=== PATIENT | male | born 1940 | race Caucasian/White ===

== ENCOUNTER → 2019-06-18 | Outpatient (CLI) | payer MEDICARE, OTHER | LOC: LL.SLEEP 10:08 | PROVIDERS: ATTEND Internal Medicine | DX: G47.33 Obstructive sleep apnea (adult) (pediatric) (principal) | CPT/HCPCS: Q3014 ==

== ENCOUNTER 2020-06-16 15:19 | Emergency (ER) | payer MEDICARE, OTHER ==
[2020-06-16] MEDS ORDERED: Famotidine 20 MG/2 ML SDV IVPUSH ONE (15:21)
--- NOTE | 2020-06-16 15:21 | EDM.PDOC ---
ED HPI GENERAL MEDICAL PROBLEM - General Chief Complaint: Neuro Symptoms/Deficits Stated Complaint: stroke code Time Seen by Provider: 06/16/20 15:21 Source of Information: Reports: Patient, [facility] Records, Old Records ([facility] EMR. No paper hospital chart available/found.), Other ([facility]) History Limitations: Reports: No Limitations - History of Present Illness INITIAL COMMENTS - FREE TEXT/NARRATIVE: The patient was brought to the emergency room via transport vehicle from [facility] in [place] with the patient just being brought home from [facility] after 24-hour observation for an episode of aphasia and confusion post heart catheterization on 06/15/2020. Shortly prior to arrival to this facility at about 14:30 hours the patient began experiencing a similar episode with 10/10 bilateral frontal headache, sudden onset bilateral nonspecific weakness, mild confusion, aphasia, and slow mental status with symptoms essentially resolved by time of arrival to this facility. He still does have a fairly significant bilateral frontal headache, however. A stroke code was called by our nursing staff. The patient denies any chest pain/pressure, heart flutter, dizziness, orthostasis, orthopnea, diaphoresis, paresthesias, recent decreased exercise tolerance, or any other anginal-type symptoms. No recent history of abdominal pain, heartburn, nausea, diarrhea, melena, gross hematochezia, or any food intolerance, including fatty foods, etc.. The patient also denies any recent fever, cough, wheezing, dyspnea, etc.. Onset: Today, Sudden Onset Date: 06/16/20 Onset Time: 14:30 Duration: Constant (Headache), Improving (Neurological status) Location: Reports: Head. Denies: Face, Neck, Chest, Abdomen, Back, Upper Extremity, Left, Upper Extremity, Right, Radiates to Quality: Reports: Same as Previous Episode, Throbbing Severity: Severe Improves with: Reports: None Worsens with: Reports: None Context: Reports: Other (As above). Denies: Sick Contact, Trauma Associated Symptoms: Reports: Confusion (Improved/resolved on arrival), Headaches. Denies: Chest Pain, Cough, Diaphoresis, Fever/Chills, Loss of Appetite, Malaise, Nausea/Vomiting, Rash, Seizure, Shortness of Breath, Syncope, Weakness Treatments ADDICTIONS RECOVERY SPECIALIST: Reports: Other (see below) (None) Bilateral Frontal Headache Pain Score (Numeric/FACES): 10 - Related Data Allergies Allergy/AdvReac Type Severity Reaction Status Date / Time aspirin Allergy Unknown Other Verified 06/16/20 15:47 Home Meds: Home Meds Acetaminophen [Tylenol Extra Strength] 1,000 mg PO Q4HR PRN MDD 3,000 mg in 24 hours 06/16/20 [History] Allopurinol [Zyloprim] 300 mg PO DAILY 06/16/20 [History] Clopidogrel [Plavix] 75 mg PO BEDTIME 06/16/20 [History] Dabigatran [Pradaxa] 150 mg PO Q12HR 06/16/20 [History] Escitalopram Oxalate [Lexapro] 20 mg PO DAILY 06/16/20 [History] Fluticasone Propionate [Flonase] 1 spray NASBOTH Q12HR 06/16/20 [History] Glucosamine/D3/Boswellia Florecita [Osteo Bi-Flex Tablet] 1 tab PO DAILY 06/16/20 [History] Isosorbide Mononitrate [Isosorbide Mononitrate ER] 15 mg PO DAILY PRN 06/16/20 [History] Levothyroxine Sodium [Synthroid] 200 mcg PO DAILY 06/16/20 [History] Loratadine 10 mg PO DAILY 06/16/20 [History] Multivit-Min/FA/Lycopen/Lutein [Centrum Silver Tablet] 1 tab PO DAILY 06/16/20 [History] Nitroglycerin [Nitrostat] 0.4 mg PO ASDIRECTED PRN 06/16/20 [History] Non-Formulary Medication [NF Drug] 1 each NASBOTH BID@0800,2000 06/16/20 [History] [place]-3/DHA/Epa/Fish Oil [[place]-3 Fish Oil Softgel] 1 cap PO DAILY 06/16/20 [History] Omeprazole 20 mg PO DAILY 06/16/20 [History] Propylene Glycol/Peg 400 [Systane 0.3-0.4% Eye Drops] 1 drop EYEBOTH Q12HR 06/16/20 [History] Propylene Glycol/Peg 400 [Systane 0.3-0.4% Eye Drops] 1 drop EYELF ASDIRECTED PRN 06/16/20 [History] Sotalol HCl [Betapace] 80 mg PO DAILY 11/19/20 [History] Vitamin E 400 unit PO DAILY 06/16/20 [History] atorvaSTATin [Lipitor] 20 mg PO BEDTIME 06/16/20 [History] levETIRAcetam [Keppra] 750 mg PO Q12HR 06/16/20 [History] metFORMIN HCl [Metformin HCl ER] 1,000 mg PO Q12HR 06/16/20 [History] Past Medical History HEENT History: Reports: Allergic Rhinitis, Hard of Hearing, Macular Degeneration, Sinusitis Cardiovascular History: Reports: Afib, Arrhythmia, CAD, Cardiomyopathy, High Cholesterol, Hypertension, PTCA, Stents, Other (See Below) Other Cardiovascular History: History of atrial fibrillation and PACs with current Pradaxa therapy. Grade 2 diastolic dysfunction and left atrial enlargement by echocardiogram. Respiratory History: Reports: Sleep Apnea, Other (See Below) Other Respiratory History: Bilateral pulmonary nodules in the bases with additional large right lower lobe pulmonary nodule stable from serial exams as below. Right-sided fifth rib fracture. Gastrointestinal History: Reports: Other (See Below) Other Gastrointestinal History: Umbilical hernia. Genitourinary History: Reports: BPH, Chronic Renal Insuffiency, Diabetic Nephropathy Musculoskeletal History: Reports: Arthritis, Fracture, Gout, Osteoarthritis, Other (See Below) Other Musculoskeletal History: Right rib fracture as above. 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 History of possible post catheterization TIA on 06/15/2020. Psychiatric History: Reports: Anxiety, Depression Endocrine/Metabolic History: Reports: Diabetes, Type II, Hypothyroidism, Obesity/BMI 30+, Other (See Below). Denies: IDDM Other Endocrine/Metabolic History: Postoperative hypothyroidism after thyroidectomy for thyroid cancer. 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 - Past Surgical History HEENT Surgical History: Reports: Naso-Sinus Surgery, Oral Surgery, Other (See Below) Other HEENT Surgeries/Procedures: Endoscopic nasal surgeries x5 since 05/06/2019 with last procedure on 05/02/2020. Septoplasty performed on 07/27/2019. Teeth extractions Cardiovascular Surgical History: Reports: Coronary Artery Stent, Other (See Below) Other Cardiovascular Surgeries/Procedures: PTCA/stent x2 in 2016 including right circumflex and right coronary artery. Endocrine Surgical History: Reports: Thyroidectomy, Other (See Below) Other Endocrine Surgeries/Procedures: Positive thyroid fine-needle aspiration biopsy on 03/10/2019 with subsequent probable complete thyroidectomy in 2019. - Past Imaging History Past Imaging History: Reports: Angiography (Negative heart catheterization on 06/15/2020 including patent stents x2 as above.), Cardiac Echo (01/27/2019 with ejection fraction of 55-60% and otherwise findings as above.), CAT Scan (CT of the chest on 02/07/2019.), MRI (Negative MRI of the brain on 06/15/2020.), PET (Cardiolite evaluation on 05/06/2020 positive for lateral wall ischemia with ejection fraction of 64 to 65%.), Sleep Study (05/18/2020.), Stress Testing (PET Cardiolite Lexiscan on 05/06/2020 as above. Stress echocardiogram on 03/26/2019.), Ultrasound (Thyroid ultrasound on 01/27/2020, 03/10/2019, and 02/03/2019.), Other (See Below) (NM I-131 thyroid whole-body scan initiated on 06/05/2019 with follow-up scan on 06/11/2019.) - History Comment History Comment: Note limited records with patient being a poor historian. Social & Family History - Family History Family Medical History: Unobtainable (Patient is a poor historian) - Living Situation & Occupation Living situation: Reports: Extended Care Facility ([facility] in [place], [facility]) ED ROS GENERAL - Review of Systems Review Of Systems: Comprehensive ROS is negative, except as noted in HPI. ED EXAM, NEURO - Physical Exam Exam: See Below Exam Limited By: No Limitations General Appearance: Alert, WD/WN, Anxious, Mild Distress (Mild secondary to headache). No: Lethargic Eye Exam: Bilateral Eye: EOMI, Normal Fundi, Normal Inspection (No nystagmus), PERRL Ears: Normal External Exam, Normal Canal, Normal TMs, Hearing Loss (Mild bilateral presbycusis) Nose: Normal Inspection, Normal Mucosa, No Blood Throat/Mouth: Normal Inspection, Normal Lips, Normal Teeth, Normal Gums, Normal Oropharynx, Normal Voice, No Airway Compromise. No: Dysphagia, Inflammation, Perioral Cyanosis Head Exam: Atraumatic, Normocephalic. No: Facial Swelling, Facial Tenderness, Sinus Tenderness Neck: Supple, Non-Tender, Full Range of Motion, Carotid Bruit (Mild bilateral carotid bruits). No: Lymphadenopathy (L), Lymphadenopathy (R), Thyromegaly Respiratory/Chest: No Respiratory Distress, Lungs Clear, Normal Breath Sounds, No Accessory Muscle Use, Chest Non-Tender. No: Pleural Rub, Retractions Cardiovascular: Normal Peripheral Pulses, Regular Rate, Rhythm, No Edema, No Gallop, No JVD, No Murmur, No Rub. No: Gallop/S3, Gallop/S4, Friction Rub GI/Abdominal: Normal Bowel Sounds, Soft, Non-Tender, No Organomegaly, No Distention, No Abnormal Bruit, No Mass, Pelvis Stable, Hernia (2cm non- incarcerated umbilical hernia). No: Guarding (Male) Exam: Deferred Rectal (Males) Exam: Deferred Neurological: Alert, Normal Dorsiflexion, Normal Plantar Flexion, Normal Gait, Oriented x 3, Abnormal Finger to Nose (As above). No: Normal Reflexes (Negative Babinski's and pronator rotation tests. No evidence of facial paresis, tongue deviation, orthostasis, etc.. Some problems with reverse thought processes with mildly positive right-sided [id number] test.), Babinski Back Exam: Normal Inspection, Full Range of Motion. No: CVA Tenderness (L), CVA Tenderness (R), Muscle Spasm Extremities: Normal Inspection, Normal Range of Motion, Non-Tender, No Pedal Edema, Normal Capillary Refill. No: Yojana's Sign Psychiatric: Anxious (Mild). No: Depressed Mood Skin Exam: Warm, Dry, Intact, Normal Color, No Rash. No: Diaphoretic, Ecchymosis, Petechiae, Wound/Incision #1 Interpretation EKG Date: 06/16/20 Time: 15:27 Rhythm: NSR Rate (Beats/Min): 63 [place]: Normal (Neutral cardiac access) P-Wave: Present QRS: Normal (0.09 seconds with noisy baseline, especially in V3) ST-T: Normal (New T wave inversion V1 with stable inversion in aVL) QT: Prolonged (Mild at 454/464 ms) MN/PQ Interval: 0.17 seconds Comparison: Change From Previous EKG (As above since 01/27/2019) EKG Interpretation Comments: 1. No acute ischemic changes Course - Vital Signs Last Recorded V/S: Last Vital Signs Temp 37.2 C 06/16/20 21:00 Pulse 68 06/16/20 21:00 Resp 18 06/16/20 21:00 BP 136/64 06/16/20 21:00 Pulse Ox 97 06/16/20 21:00 See Stroke Code sheet Vital Signs - 24 hr 06/16/20 06/16/20 20:00 21:00 Temperature [ 37.9 C 37.2 C Oral] Pulse, 77 68 Peripheral [ Pulse Oximetry] Respiratory 18 18 Rate Blood Pressure 139/73 136/64 [Left Upper Arm ] O2 Sat by Pulse 98 97 Oximetry - Orders/Labs/Meds Orders: Active Orders 24 hr Category Date Time Status Chest 1V Frontal [CR] Stat Exams 06/16/20 15:21 Taken Head wo Cont [CT] Stat Exams 06/16/20 15:21 Taken CULTURE BLOOD [BC] Stat Lab 06/16/20 20:10 Ordered CULTURE BLOOD [BC] Stat Lab 06/16/20 20:10 Ordered CULTURE URINE [RM] Routine Lab 06/16/20 17:00 Received PROLACTIN [REF] Stat Lab 06/16/20 15:15 Received Blood Culture x2 Reflex Set [OM.PC] Urgent Oth 06/16/20 20:09 Ordered Obtain Past Medical Record [OM.PC] Stat Oth 06/16/20 15:21 Active Peripheral IV Insertion Adult [OM.PC] Stat Oth 06/16/20 15:21 Ordered Resuscitation Status Stat Resus Stat 06/16/20 15:21 Ordered Labs: Laboratory Tests 06/16/20 06/16/20 06/16/20 Range/Units 15:15 15:15 15:15 WBC 7.8 (4.0-10.2) K/uL RBC 3.74 L (4.33-5.41) M/uL Hgb 10.3 L (13.1-16.8) g/dL Hct 32.2 L (39.0-49.0) % MCV 86.1 (84.0-98.0) fL MCH 27.5 L (28.2-33.3) pg MCHC 32.0 (31.7-36.0) g/dL RDW 14.8 H (11.2-14.1) % Plt Count 230 (150-350) K/uL Neut % (Auto) 58.6 (45.0-80.0) % Lymph % (Auto) 22.6 (10.0-50.0) % Collier % (Auto) 14.8 H (2.0-14.0) % Eos % (Auto) 3.5 (0.0-5.0) % Baso % (Auto) 0.5 (0.0-2.0) % Neut # (Auto) 4.56 (1.40-7.00) K/uL Lymph # (Auto) 1.76 (0.50-3.50) K/uL [place]lier # (Auto) 1.15 H (0.00-1.00) K/uL Eos # (Auto) 0.27 (0.00-0.50) K/uL Baso # (Auto) 0.04 (0.00-0.20) K/uL PT 10.0 (9.5-12.0) SEC INR 1.0 APTT 26.7 (24.5-32.8) SEC D-Dimer, Quantitative 117 (0-400) ng/mL Sodium (136-145) mmol/L Potassium (3.5-5.1) mmol/L Chloride (98-107) mmol/L Carbon Dioxide (21.0-32.0) mmol/L BUN (7-18) mg/dL Creatinine (0.51-1.17) mg/dL Est Cr Clr Drug Dosing mL/min Estimated GFR (MDRD) mL/min Glucose (74-106) mg/dL Lactic Acid (0.4-2.0) mmol/L Uric Acid (2.6-7.2) mg/dL Calcium (8.5-10.1) mg/dL Magnesium (1.8-2.4) mg/dL Total Bilirubin (0.2-1.0) mg/dL AST (15-37) U/L ALT (12-78) U/L Alkaline Phosphatase (46-116) IU/L Creatine Kinase (26-308) U/L Creatine Kinase Index (0.0-2.5) % CK-MB (CK-2) (0.00-3.60) ng/mL Troponin I (0.000-0.056) ng/mL NT-Pro-B Natriuret Pep (0-125) pg/mL Total Protein (6.4-8.2) g/dL Albumin (3.4-5.0) g/dL TSH, Ultra Sensitive (0.358-3.740) mIU/mL Specimen Type Urine Color Urine Appearance Urine pH (5.0-9.0) Ur Specific [place] (1.005-1.030) Urine Protein (NEGATIVE) mg/dL Urine Glucose (UA) (NEGATIVE) mg/dL Urine Ketones (NEGATIVE) mg/dL Urine Occult Blood (NEGATIVE) Urine Nitrite (NEGATIVE) Urine Bilirubin (NEGATIVE) Urine Urobilinogen (0.2-1.0) E.U./dL Ur Leukocyte Esterase (NEGATIVE) U Hyaline Cast (Auto) Urine RBC /HPF Urine WBC /HPF Urine Bacteria (NONE TO FEW) /HPF Granular Casts (Auto) 06/16/20 06/16/20 06/16/20 Range/Units 15:15 15:15 17:00 WBC (4.0-10.2) K/uL RBC (4.33-5.41) M/uL Hgb (13.1-16.8) g/dL Hct (39.0-49.0) % MCV (84.0-98.0) fL MCH (28.2-33.3) pg MCHC (31.7-36.0) g/dL RDW (11.2-14.1) % Plt Count (150-350) K/uL Neut % (Auto) (45.0-80.0) % Lymph % (Auto) (10.0-50.0) % Collier % (Auto) (2.0-14.0) % Eos % (Auto) (0.0-5.0) % Baso % (Auto) (0.0-2.0) % Neut # (Auto) (1.40-7.00) K/uL Lymph # (Auto) (0.50-3.50) K/uL [place] # (Auto) (0.00-1.00) K/uL Eos # (Auto) (0.00-0.50) K/uL Baso # (Auto) (0.00-0.20) K/uL PT (9.5-12.0) SEC INR APTT (24.5-32.8) SEC D-Dimer, Quantitative (0-400) ng/mL Sodium 137 (136-145) mmol/L Potassium 4.2 (3.5-5.1) mmol/L Chloride 101 (98-107) mmol/L Carbon Dioxide 22.9 (21.0-32.0) mmol/L BUN 19 H (7-18) mg/dL Creatinine 1.74 H (0.51-1.17) mg/dL Est Cr Clr Drug Dosing 35.54 mL/min Estimated GFR (MDRD) 38 mL/min Glucose 144 H (74-106) mg/dL Lactic Acid 3.0 H (0.4-2.0) mmol/L Uric Acid 5.0 (2.6-7.2) mg/dL Calcium 8.5 (8.5-10.1) mg/dL Magnesium 1.7 L (1.8-2.4) mg/dL Total Bilirubin 0.3 (0.2-1.0) mg/dL AST 15 (15-37) U/L ALT 17 (12-78) U/L Alkaline Phosphatase 67 (46-116) IU/L Creatine Kinase 62 (26-308) U/L Creatine Kinase Index 1.5 (0.0-2.5) % CK-MB (CK-2) 0.90 (0.00-3.60) ng/mL Troponin I 0.000 (0.000-0.056) ng/mL NT-Pro-B Natriuret Pep 944 H (0-125) pg/mL Total Protein 7.0 (6.4-8.2) g/dL Albumin 3.0 L (3.4-5.0) g/dL TSH, Ultra Sensitive 0.038 L (0.358-3.740) mIU/mL Specimen Type Urincc Urine Color Yellow Urine Appearance Clear Urine pH 5.0 (5.0-9.0) Ur Specific [place] 1.020 (1.005-1.030) Urine Protein 30 H (NEGATIVE) mg/dL Urine Glucose (UA) Negative (NEGATIVE) mg/dL Urine Ketones Trace H (NEGATIVE) mg/dL Urine Occult Blood Negative (NEGATIVE) Urine Nitrite Negative (NEGATIVE) Urine Bilirubin Negative (NEGATIVE) Urine Urobilinogen 0.2 (0.2-1.0) E.U./dL Ur Leukocyte Esterase Negative (NEGATIVE) U Hyaline Cast (Auto) Rare Urine RBC Not seen /HPF Urine WBC 0-5 /HPF Urine Bacteria Few (NONE TO FEW) /HPF Granular Casts (Auto) Rare 06/16/20 Range/Units 19:40 WBC (4.0-10.2) K/uL RBC (4.33-5.41) M/uL Hgb (13.1-16.8) g/dL Hct (39.0-49.0) % MCV (84.0-98.0) fL MCH (28.2-33.3) pg MCHC (31.7-36.0) g/dL RDW (11.2-14.1) % Plt Count (150-350) K/uL Neut % (Auto) (45.0-80.0) % Lymph % (Auto) (10.0-50.0) % [place] % (Auto) (2.0-14.0) % Eos % (Auto) (0.0-5.0) % Baso % (Auto) (0.0-2.0) % Neut # (Auto) (1.40-7.00) K/uL Lymph # (Auto) (0.50-3.50) K/uL [place] # (Auto) (0.00-1.00) K/uL Eos # (Auto) (0.00-0.50) K/uL Baso # (Auto) (0.00-0.20) K/uL PT (9.5-12.0) SEC INR APTT (24.5-32.8) SEC D-Dimer, Quantitative (0-400) ng/mL Sodium (136-145) mmol/L Potassium (3.5-5.1) mmol/L Chloride (98-107) mmol/L Carbon Dioxide (21.0-32.0) mmol/L BUN (7-18) mg/dL Creatinine (0.51-1.17) mg/dL Est Cr Clr Drug Dosing mL/min Estimated GFR (MDRD) mL/min Glucose (74-106) mg/dL Lactic Acid 3.5 H (0.4-2.0) mmol/L Uric Acid (2.6-7.2) mg/dL Calcium (8.5-10.1) mg/dL Magnesium (1.8-2.4) mg/dL Total Bilirubin (0.2-1.0) mg/dL AST (15-37) U/L ALT (12-78) U/L Alkaline Phosphatase (46-116) IU/L Creatine Kinase (26-308) U/L Creatine Kinase Index (0.0-2.5) % CK-MB (CK-2) (0.00-3.60) ng/mL Troponin I (0.000-0.056) ng/mL NT-Pro-B Natriuret Pep (0-125) pg/mL Total Protein (6.4-8.2) g/dL Albumin (3.4-5.0) g/dL TSH, Ultra Sensitive (0.358-3.740) mIU/mL Specimen Type Urine Color Urine Appearance Urine pH (5.0-9.0) Ur Specific [place] (1.005-1.030) Urine Protein (NEGATIVE) mg/dL Urine Glucose (UA) (NEGATIVE) mg/dL Urine Ketones (NEGATIVE) mg/dL Urine Occult Blood (NEGATIVE) Urine Nitrite (NEGATIVE) Urine Bilirubin (NEGATIVE) Urine Urobilinogen (0.2-1.0) E.U./dL Ur Leukocyte Esterase (NEGATIVE) U Hyaline Cast (Auto) Urine RBC /HPF Urine WBC /HPF Urine Bacteria (NONE TO FEW) /HPF Granular Casts (Auto) Prolactin level drawn with results pending. Stat Accu-Chek on patient's arrival 145 mg percent. Blood cultures x2 were collected Meds: Medications Discontinued Medications Generic Name Dose Route Start Last Admin Trade Name Mayra PRN Reason Stop Dose Admin Acetaminophen 650 mg 06/16/20 15:54 06/16/20 16:06 Tylenol PO 06/16/20 15:55 650 mg NOW ONE Administration Acetaminophen 650 mg 06/16/20 20:07 06/16/20 20:20 Tylenol PO 06/16/20 20:08 650 mg NOW ONE Administration Diphenhydramine HCl 50 mg 06/16/20 15:54 06/16/20 16:05 Benadryl PO 06/16/20 15:55 50 mg ONETIME ONE Administration Famotidine 40 mg 06/16/20 15:21 06/16/20 15:29 Pepcid IVPUSH 06/16/20 15:22 40 mg ONETIME ONE Administration Lactated Ringer's 1,000 mls @ 999 mls/hr 06/16/20 16:43 06/16/20 16:45 Ringers, Lactated IV 06/16/20 17:43 999 mls/hr .BOLUS ONE Administration Magnesium Sulfate 4 gm/ Premix 100 mls @ 200 mls/hr 06/16/20 17:17 06/16/20 17:34 IV 06/16/20 17:46 200 mls/hr ONETIME ONE Administration Ceftriaxone Sodium 1 gm/ 100 mls @ 200 mls/hr 06/16/20 20:10 06/16/20 20:27 Sodium Chloride IV 06/16/20 20:39 200 mls/hr ONETIME ONE Administration Ceftriaxone Sodium 1 gm/ 100 mls @ 200 mls/hr 06/16/20 21:01 06/16/20 21:16 Sodium Chloride IV 06/16/20 21:30 200 mls/hr ONETIME ONE Administration Metoclopramide HCl 10 mg 06/16/20 17:34 06/16/20 17:38 Reglan IVPUSH 06/16/20 17:35 10 mg ONETIME ONE Administration Sodium Chloride 10 ml 06/16/20 15:21 06/16/20 20:28 Saline Flush FLUSH 10 ml ASDIRECTED PRN Administration Keep Vein Open - Radiology Interpretation Free Text/Narrative:: bus monitor shows normal sinus rhythm in the 60s to 70s with no ectopy or arrhythmia. Chest x-ray, portable, shows evidence of mild COPD changes with probable stable right lower lobe pulmonary nodule. Borderline pulmonary hypertension and/or mild CHF with minimal left pleural effusion. No cardiomegaly, pneumothorax, or pulmonary infiltrates. Telephone consultation at 3:42 PM with the radiology department at [facility]. Preliminary verbal report does not show any evidence of acute findings, including cerebral bleed, etc., with chronic cerebral microvascular disease noted. CT Results Date: 06/16/20 CT Results Time: 15:42 Departure - Departure Time of Disposition: 22:10 Disposition: DC/Tfer to Acute Hospital 02 Condition: Good Clinical Impression: TIA (transient ischemic attack), Elevated lactic acid level, Hypomagnesemia, Hypothyroidism associated with surgical procedure, Hypoalbuminemia, Seizure disorder Headache Qualifiers: Headache type: unspecified Headache chronicity pattern: acute headache Intractability: not intractable Qualified Code(s): R51.9 - Headache, unspecified Diabetes mellitus Qualifiers: Diabetes mellitus type: type 2 Diabetes mellitus assisted insulin use: without assisted use Diabetes mellitus complication status: with kidney complications Diabetes mellitus complication detail: with chronic kidney disease Chronic kidney disease stage: stage 3 (moderate) Chronic kidney disease stage 3 subtype: stage 3a (GFR 45-59) Qualified Code(s): E11.21 - Type 2 diabetes mellitus with diabetic nephropathy Coronary artery disease Qualifiers: Coronary Disease-Associated Artery/Lesion type: [place] artery [place] vs. transplanted heart: [place] heart Associated angina: without angina Qualified Code(s): I25.10 - Atherosclerotic heart disease of [place] coronary artery without angina pectoris Hypertension Qualifiers: Hypertension type: essential hypertension Qualified Code(s): I10 - Essential (primary) hypertension Diabetic nephropathy Qualifiers: Diabetes mellitus type: type 2 Qualified Code(s): E11.21 - Type 2 diabetes mellitus with diabetic nephropathy Anemia Qualifiers: Anemia type: due to chronic kidney disease Chronic kidney disease stage: stage 3 (moderate) Chronic kidney disease stage 3 subtype: stage 3a (GFR 45-59) Qualified Code(s): N18.31 - Chronic kidney disease, stage 3a - Discharge Information *PRESCRIPTION DRUG MONITORING PROGRAM REVIEWED*: Not Applicable *COPY OF PRESCRIPTION DRUG MONITORING REPORT IN PATIENT EBONI: Not Applicable Referrals: Amanda Campos PA [Primary Care Provider] - Forms: ED Department Discharge, Interfacility Transfer [facility] Sepsis Event Note (ED) - Focused Exam Vital Signs: Vital Signs Temp Pulse Resp BP Pulse Ox 06/16/20 21:00 37.2 C 68 18 136/64 97 - Problem List & Annotations (1) Elevated lactic acid level SNOMED Code(s): 8511439 Code(s): R79.89 - OTHER SPECIFIED ABNORMAL FINDINGS OF BLOOD CHEMISTRY Status: Acute Priority: High Onset Date: 06/16/20 Annotation/Comment:: No fever, leukocytosis, or evidence of sepsis initially upon patient's arrival to the emergency room. 1 L lactated Ringer's was given given by IV bolus. Repeat lactic acid level shows progression to 3.5 with possibility of sepsis with infection source of unknown etiology. Patient did have some progressive confusion and new onset fever during later phases of his emergency room care with initial dose of Tylenol given for his headache and second dose of Tylenol given for his fever. Questionable possible pneumonia with negative COVID-19 test at [facility] in [place] earlier today per their EMR. UA is negative other than some mild ketones with no evidence of infection, however urine specimen was set up for culture and sensitivity. Blood cultures x2 were collected. Initial 1 g of IV Rocephin therapy was completed in the emergency room. Telephone consultation at 8:[address] Perez, hospitalist at the [facility], who agrees to check on his facility's bed status. Subsequent telephone consultation at 8:[address] Perez with discussion of possible etiologies of his infection, including SAND SHOVELER infection, etc., however patient did not show any meningeal signs during this emergency room care. He does agree to accept the patient for further review and treatment, with no further treatment recommendations given. Per Dr. Perez's request an additional 1 g of IV Rocephin infusion will be given in route with ambulance transfer with asset protection detective accompaniment. Probable additional IV antibiotic therapy by accepting providers at time of his arrival to that facility with consideration of additional influenza screen to be conducted at that time. Note potline monitor was maintained through majority of his emergency room care, however the patient kept tearing the electrodes off with patient not transferred with telemetry. (2) TIA (transient ischemic attack) SNOMED Code(s): 625598727 Code(s): G45.9 - TRANSIENT CEREBRAL ISCHEMIC ATTACK, UNSPECIFIED Status: Acute Priority: High Onset Date: 06/16/20 Annotation/Comment:: Possible TIA today and on 06/15/2020 during postoperative care during heart catheterization. [place] records were reviewed today as above. Note resolved symptoms at time of arrival to our facility. Stroke code was called by our emergency room nurse with telephone consultation at 3:[address] Jimenez, stroke neurologist at [facility], with no further treatment or evaluation recommended at this time. The patient may return to the shelter per his instructions. Note negative MRI of the brain without contrast at [facility] on 06/15/[address] scan of the head without contrast in this facility today. Neurological checks with vitals. Possibility of migraine equivalent versus small embolism from recent heart catheterization. Patient was observed in the emergency room for more than 3 hours with stable neurological findings prior to discharge with exception of some confusion likely secondary to his current infection. (3) Headache SNOMED Code(s): 47743898 Code(s): R51.9 - HEADACHE, UNSPECIFIED Status: Acute Priority: High Onset Date: 06/16/20 Annotation/Comment:: No known history of previous headaches based on limited medical records. Note history of chronic sinusitis with no evidence of acute infection at this time. Headache improved prior to patient transfer with medical therapy as above. Qualifiers: Headache type: unspecified Headache chronicity pattern: acute headache Intractability: not intractable Qualified Code(s): R51.9 - Headache, unspecified (4) Coronary artery disease SNOMED Code(s): 28107866 Code(s): I25.10 - ATHSCL HEART DISEASE OF [place] CORONARY ARTERY W/O ANG PCTRS Status: Chronic Priority: Medium Annotation/Comment:: Known history of coronary artery disease with patent stents x2 as per recent heart catheterization on 06/15/2020 as above. No chest pain or anginal type symptoms. Patient is a somewhat poor historian, however. Note mild BNP elevation likely secondary to his renal disease with no significant clinical CHF by exam despite chest x-ray findings as above. Continue to observe closely by regular providers as per discharge instructions. Qualifiers: Coronary Disease-Associated Artery/Lesion type: [place] artery [place] vs. transplanted heart: [place] heart Associated angina: without angina Qualified Code(s): I25.10 - Atherosclerotic heart disease of [place] coronary artery without angina pectoris (5) Anemia SNOMED Code(s): 926585969 Code(s): D64.9 - ANEMIA, UNSPECIFIED Status: Acute Priority: Medium Onset Date: 06/16/20 Annotation/Comment:: No evidence of GI bleed, etc. High- dose IV Protonix given as GI prophylaxis. Note chronic renal disease. Close follow-up by regular provider. Qualifiers: Anemia type: due to chronic kidney disease Chronic kidney disease stage: stage 3 (moderate) Chronic kidney disease stage 3 subtype: stage 3a (GFR 45- 59) Qualified Code(s): N18.31 - Chronic kidney disease, stage 3a; D63.1 - Anemia in chronic kidney disease (6) Diabetes mellitus SNOMED Code(s): 90408835 Code(s): E11.9 - TYPE 2 DIABETES MELLITUS WITHOUT COMPLICATIONS Status: Chronic Priority: Medium Annotation/Comment:: Stat Accu-Chek at time of patient's arrival normal at 145 mg percent with no evidence of hypoglycemic symptoms or episodes. Qualifiers: Diabetes mellitus type: type 2 Diabetes mellitus watermaster insulin use: daniella aguilar watermaster use Diabetes mellitus complication status: with kidney complications Diabetes mellitus complication detail: with chronic kidney dis ease Chronic kidney disease stage: stage 3 (moderate) Chronic kidney disease stage 3 subtype: stage 3a (GFR 45-59) Qualified Code(s): E11.21 - Type 2 diabetes mellitus with diabetic nephropathy; N18.31 - Chronic kidney disease, stage 3a (7) Diabetic nephropathy Status: Chronic Priority: Medium Annotation/Comment:: Continue to observe closely by regular providers. Qualifiers: Diabetes mellitus type: type 2 Qualified Code(s): E11.21 - Type 2 diabetes mellitus with diabetic nephropathy (8) Hypertension SNOMED Code(s): 88566411 Code(s): I10 - ESSENTIAL (PRIMARY) HYPERTENSION Status: Chronic Priority: Medium Annotation/Comment:: Blood pressures under good control in the emergency room. Qualifiers: Hypertension type: essential hypertension Qualified Code(s): I10 - Essential (primary) hypertension (9) Hypoalbuminemia SNOMED Code(s): 888542515 Code(s): E88.09 - OTH DISORDERS OF PLASMA-PROTEIN METABOLISM, NEC Status: Acute Priority: Medium Onset Date: 06/16/20 Annotation/Comment:: Observe for now (10) Hypomagnesemia SNOMED Code(s): 506010974 Code(s): E83.42 - HYPOMAGNESEMIA Status: Acute Priority: High Onset Date: 06/16/20 Annotation/Comment:: IV magnesium sulfate 4 g given in the emergency room, which was also used as treatment for his headache, with close follow-up by regular provider. Consider initiation of oral magnesium oxide therapy depending on results of follow-up blood work by his regular provider, however with caution secondary to his renal disease. 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 Further instructions by regular provider as per discharge instructions. (12) Seizure disorder SNOMED Code(s): 090849722 Code(s): G40.909 - EPILEPSY, UNSP, NOT INTRACTABLE, WITHOUT STATUS EPILEPTICUS Status: Chronic Priority: Medium Annotation/Comment:: No evidence of seizure today or during recent hospitalization at [place]. Prolact in level was drawn with results pending. No evidence of postictal sedation. - Problem List Review Problem List Initiated/Reviewed/Updated: Yes - My Orders Last 24 Hours: My Active Orders 06/16/20 15:15 PROLACTIN [REF] Stat 06/16/20 15:21 Chest 1V Frontal [CR] Stat Head wo Cont [CT] Stat Obtain Past Medical Record [OM.PC] Stat Peripheral IV Insertion Adult [OM.PC] Stat Resuscitation Status Stat 06/16/20 17:00 CULTURE URINE [RM] Routine 06/16/20 20:09 Blood Culture x2 Reflex Set [OM.PC] Urgent 06/16/20 20:10 CULTURE BLOOD [BC] Stat CULTURE BLOOD [BC] Stat - Assessment/Plan Last 24 Hours: My Active Orders 06/16/20 15:15 PROLACTIN [REF] Stat 06/16/20 15:21 Chest 1V Frontal [CR] Stat Head wo Cont [CT] Stat Obtain Past Medical Record [OM.PC] Stat Peripheral IV Insertion Adult [OM.PC] Stat Resuscitation Status Stat 06/16/20 17:00 CULTURE URINE [RM] Routine 06/16/20 20:09 Blood Culture x2 Reflex Set [OM.PC] Urgent 06/16/20 20:10 CULTURE BLOOD [BC] Stat CULTURE BLOOD [BC] Stat Assessment:: As above Plan: As above. Extensive precautions were given to the patient and shelter staff, who are in agreement with the treatment plan. See Patient Instructions for further treatment and plan.
[2020-06-16] MEDS: Sodium Chloride 0.9% 10 ML Syringe FLUSH PRN ×3 (15:29→20:28)
[2020-06-16 15:39] LABS: PTT,PARTIAL THROMBOPLSTIN TIME 26.7 SEC (24.5-32.8)
[2020-06-16] MEDS ORDERED: diphenhydrAMINE 25 MG Cap PO ONE (15:54)
[2020-06-16] MEDS ORDERED: Acetaminophen 325 MG Tab PO ONE ×2 (15:54→20:07)
[2020-06-16] MEDS ORDERED: Lactated Ringers 1,000 ML IV ONE (16:43)
[2020-06-16] MEDS ORDERED: Magnesium Sulfate/Water 4 GM in Premix Bag 1 BAG IV ONE (17:17)
[2020-06-16] MEDS ORDERED: Metoclopramide 10 MG/2 ML SDV IVPUSH ONE (17:34)
[2020-06-16] MEDS ORDERED: cefTRIAXone 1 GM in Sodium Chloride 0.9% 100 ML IV ONE ×2 (20:10→21:01)
== END 2020-06-16 22:10 ==
LOC: SUPCPDRO 15:19 → LL.ED 15:19
DX: G45.9 Transient cerebral ischemic attack, unspecified (principal); I12.9 Hypertensive chronic kidney disease with stage 1 through stage 4 chronic kidney disease, or unspecified chronic kidney disease; N18.31 Chronic kidney disease, stage 3a; I25.10 Atherosclerotic heart disease of native coronary artery without angina pectoris; E11.21 Type 2 diabetes mellitus with diabetic nephropathy; I48.91 Unspecified atrial fibrillation; E78.00 Pure hypercholesterolemia, unspecified; M10.9 Gout, unspecified; E66.9 Obesity, unspecified; Z68.34 Body mass index [BMI] 34.0-34.9, adult; R74.02 Elevation of levels of lactic acid dehydrogenase [LDH]; E83.42 Hypomagnesemia; E03.9 Hypothyroidism, unspecified; E88.09 Other disorders of plasma-protein metabolism, not elsewhere classified; G40.909 Epilepsy, unspecified, not intractable, without status epilepticus; Z88.6 Allergy status to analgesic agent; Z79.02 Long term (current) use of antithrombotics/antiplatelets; Z79.899 Other long term (current) drug therapy; Z79.84 Long term (current) use of oral hypoglycemic drugs; Z95.5 Presence of coronary angioplasty implant and graft
CPT/HCPCS: 36415; 70450; 71045; 80053; 81001; 82550; 82553; 83605; 83735; 83880; 84146; 84443; 84484; 84550; 85025; 85379; 85610; 85730; 87086; 93005; 96361; 96365; 96366; 96367; 96375; 99285-25; A9270-GY; J0696; J2765; J3475; J3490; J7120

== ENCOUNTER 2021-07-06 07:55 | Day surgery (SDC) | payer MEDICARE, OTHER ==
[~2021-07-06 07:55] MED LIST: Lactated Ringers 1,000 ML IV SCH; Sodium Chloride 0.9% 10 ML Syringe FLUSH PRN
[2021-07-06] MEDS ORDERED: Propofol 200 MG/20 ML SDV ONE ×4 (08:05→08:45)
--- NOTE | 2021-07-06 09:37 | PCM.HPR ---
H & P Addendum review - H & P Addendum Review Date of Original H & P: 06/20/21 Date Reviewed: 07/06/21 Time Reviewed: 08:00 Patient was Examined: No Changes
--- NOTE | 2021-07-06 09:39 | PCM.OPNOTE ---
- General Post-Op/Procedure Note Date of Surgery/Procedure: 07/06/21 Operative Procedure(s): Colonoscopy Findings: 2 small polyps- left in place Pre Op Diagnosis: Anemia Post-Op Diagnosis: Same Anesthesia Technique: MAC Primary Surgeon: Omar Eldridge Complications: None Condition: Good
--- NOTE | 2021-07-06 10:32 | OR ---
Date of Procedure: 07/06/2021 PREOPERATIVE DIAGNOSIS: Anemia. POSTOPERATIVE DIAGNOSIS: Colon polyps. PROCEDURE: Colonoscopy. ANESTHESIA: IV sedation. DESCRIPTION OF PROCEDURE: Patient was brought to the procedure room where he was placed on his left side and IV sedation administered. Digital rectal exam was performed which was normal. Colonoscope was inserted and advanced to the level of the cecum without difficulty. Cecal position was confirmed by identifying the appendiceal lumen and ileocecal valve. Prep was fair with some thick liquid stool remaining that was mostly irrigated and suctioned. Upon withdrawing the scope, the ascending and transverse colon were normal. In the descending colon, there was an 8 mm and another 6 mm sessile polyps. Neither of these have concerning features. I elected to leave these in place since these are not causing any anemia and he has only been off Plavix for 3 days and would be at high risk for bleeding. The sigmoid colon and rectum were normal. Retroflexion was normal. Air was removed and the scope withdrawn. Patient tolerated the procedure well and returned to recovery in stable condition. No further treatment is recommended. The polyps are not responsible for his anemia and have very little chance of ever causing any problems in his lifetime and would recommend leaving them. UMANG REEDER MD /[id number]
== END 2021-07-06 10:40 | disposition home or self-care (01) ==
LOC: LL.SDS 07:55
PROVIDERS: ATTEND Surgery
DX: D64.9 Anemia, unspecified (principal); K63.5 Polyp of colon; G47.33 Obstructive sleep apnea (adult) (pediatric); E78.2 Mixed hyperlipidemia; M10.9 Gout, unspecified; I48.91 Unspecified atrial fibrillation; E03.9 Hypothyroidism, unspecified; E66.09 Other obesity due to excess calories; I12.9 Hypertensive chronic kidney disease with stage 1 through stage 4 chronic kidney disease, or unspecified chronic kidney disease; E11.22 Type 2 diabetes mellitus with diabetic chronic kidney disease; N18.32 Chronic kidney disease, stage 3b; D63.1 Anemia in chronic kidney disease; Z79.899 Other long term (current) drug therapy; Z79.84 Long term (current) use of oral hypoglycemic drugs; Z88.8 Allergy status to other drugs, medicaments and biological substances; Z68.34 Body mass index [BMI] 34.0-34.9, adult
CPT/HCPCS: 00811; 82947; J2704; J7120

== ENCOUNTER 2021-11-21 16:31 | Emergency (ER) | payer MEDICARE, OTHER ==
[2021-11-21] MEDS ORDERED: Sodium Chloride 0.9% 10 ML Syringe FLUSH PRN (16:33)
[2021-11-21] MEDS ORDERED: Lidocaine 1% 5 ML VIAL INJECT ONE (16:37)
[2021-11-21 17:13] LABS: PTT,PARTIAL THROMBOPLSTIN TIME 41.5 SEC (23.6-29.8)
[2021-11-21 17:15] LABS: ANION GAP 20.6 meq/L (7-15); CHLORIDE,CL 104 mmol/L (98-107); SODIUM,NA 137 mmol/L (136-145)
[2021-11-21] MEDS ORDERED: Diphtheria,Pertussis(Acell),Tetanus Vaccine 0.5 ML Syringe IM ONE (17:57)
[2021-11-21] MEDS ORDERED: Bacitracin/Neomycin/Polymyxin B Oint 0.9 GM U/D Packet ONE (18:10)
== END 2021-11-21 19:00 | disposition home or self-care (01) ==
LOC: LL.ED 16:31
DX: S01.111A Laceration without foreign body of right eyelid and periocular area, initial encounter (principal); S80.01XA Contusion of right knee, initial encounter; S80.02XA Contusion of left knee, initial encounter; I25.10 Atherosclerotic heart disease of native coronary artery without angina pectoris; I48.91 Unspecified atrial fibrillation; E78.00 Pure hypercholesterolemia, unspecified; I10 Essential (primary) hypertension; M10.9 Gout, unspecified; M19.90 Unspecified osteoarthritis, unspecified site; E11.9 Type 2 diabetes mellitus without complications; E03.9 Hypothyroidism, unspecified; E66.9 Obesity, unspecified; Z68.30 Body mass index [BMI] 30.0-30.9, adult; Z88.8 Allergy status to other drugs, medicaments and biological substances; Z79.02 Long term (current) use of antithrombotics/antiplatelets; Z79.4 Long term (current) use of insulin; Z79.899 Other long term (current) drug therapy; Z23 Encounter for immunization; W22.09XA Striking against other stationary object, initial encounter
CPT/HCPCS: 12013; 36415; 70450; 70486; 72125; 73562-50; 80053; 85025; 85610; 85730; 90471; 90715; 99284; 99284-25

== ENCOUNTER → 2022-05-09 | Emergency (ER) | payer MEDICARE, OTHER ==
[2022-05-30 09:09] LABS: ANION GAP 11.9 meq/L (7-15); CHLORIDE,CL 103 mmol/L (98-107); ESTIMATED GFR 33 mL/min (>=60); SODIUM,NA 139 mmol/L (136-145)
== END ==
LOC: LL.ED 20:15
DX: S09.90XA Unspecified injury of head, initial encounter (principal); R73.9 Hyperglycemia, unspecified; Z79.01 Long term (current) use of anticoagulants; W01.198A Fall on same level from slipping, tripping and stumbling with subsequent striking against other object, initial encounter
CPT/HCPCS: 36415; 70450; 72040; 80053; 85027; 99284

== ENCOUNTER 2023-08-04 00:21 | Emergency (ER) | payer MEDICARE, OTHER ==
[2023-08-04] MEDS ORDERED: Sodium Chloride 0.9% 10 ML Syringe FLUSH PRN ×2 (01:02→01:49)
[2023-08-04 01:09] LABS: BASOPHILS ABSOLUTE AUTO 0.04 K/uL (0.00-0.20); BASOPHILS PERCENT AUTO 0.4 % (0.0-2.0); EOSINOPHILS ABSOLUTE AUTO 0.49 K/uL (0.00-0.50); EOSINOPHILS PERCENT AUTO 5.4 % (0.0-5.0); HEMATOCRIT 40.6 % (39.0-49.0); HEMOGLOBIN 13.5 g/dL (13.1-16.8); LYMPHOCYTES ABSOLUTE AUTO 2.57 K/uL (0.50-3.50); LYMPHOCYTES PERCENT AUTO 28.2 % (10.0-50.0); MEAN CORPUSCULAR HEMOGLOBIN 32.8 pg (28.2-33.3); MEAN CORPUSCULAR HGB CONC 33.3 g/dL (31.7-36.0); MEAN CORPUSCULAR VOLUME 98.8 fL (84.0-98.0); MONOCYTES ABSOLUTE AUTO 0.89 K/uL (0.00-1.00); MONOCYTES PERCENT AUTO 9.8 % (2.0-14.0); NEUTROPHILS ABSOLUTE AUTO 5.12 K/uL (1.40-7.00); NEUTROPHILS PERCENT AUTO 56.2 % (45.0-80.0); PLATELET COUNT,PLT 265 K/uL (150-350); RED BLOOD CELL COUNT 4.11 M/uL (4.33-5.41); RED CELL DISTRIBUTION WIDTH 13.6 % (11.2-14.1); WHITE BLOOD CELL COUNT,WBC 9.1 K/uL (4.0-10.2)
[2023-08-04 01:29] LABS: ALBUMIN 3.1 g/dL (3.4-5.0); ANION GAP 10.3 meq/L (7-15); BILIRUBIN TOTAL 0.3 mg/dL (0.2-1.0); CALCIUM 8.7 mg/dL (8.5-10.1); CARBON DIOXIDE,CO2 23.7 mmol/L (21.0-32.0); CREATININE 2.18 mg/dL (0.51-1.17); EST CRCL DRUG DOSING (CG) 26.13 mL/min; POTASSIUM,K 4.5 mmol/L (3.5-5.1); PROTEIN TOTAL,TP 7.2 g/dL (6.4-8.2)
[2023-08-04 01:35] LABS: PROTHROMBIN TIME 10.1 SEC (9.0-11.1)
[2023-08-04] MEDS ORDERED: Adenosine 6 MG/2 ML SDV IVPUSH ONE ×2 (01:49→02:16)
[2023-08-04 01:54] LABS: CORONAVIRUS COVID-19 NAA NEGATIVE (NEGATIVE); INFLUENZA A NAA NEGATIVE (NEGATIVE); INFLUENZA B NAA NEGATIVE (NEGATIVE); RESPIRATORY SYNCYTIAL VIR NAA NEGATIVE (NEGATIVE)
[2023-08-04] MEDS ORDERED: Lactated Ringers 500 ML IV ONE (01:58)
[2023-08-04] MEDS ORDERED: Diltiazem 25 MG/5 ML SDV IVPUSH ONE (02:28)
== END 2023-08-04 03:20 ==
LOC: LL.ED 00:21
DX: I48.92 Unspecified atrial flutter (principal); E86.0 Dehydration; I25.10 Atherosclerotic heart disease of native coronary artery without angina pectoris; E78.00 Pure hypercholesterolemia, unspecified; E11.9 Type 2 diabetes mellitus without complications; E03.9 Hypothyroidism, unspecified; E66.9 Obesity, unspecified; Z68.35 Body mass index [BMI] 35.0-35.9, adult; Z88.6 Allergy status to analgesic agent; Z79.899 Other long term (current) drug therapy; Z79.4 Long term (current) use of insulin; Z20.822 Contact with and (suspected) exposure to COVID-19
CPT/HCPCS: 0241U; 36415; 71045; 80053; 83605; 83880; 84484; 85025; 85610; 93005; 93010; 96361; 96374; 96375; 99284; 99285-25; J0153; J3490; J7120

== ENCOUNTER 2023-08-05 11:40 | Emergency (ER) | payer MEDICARE, OTHER ==
[2023-08-05] MEDS ORDERED: Sodium Chloride 0.9% 10 ML Syringe FLUSH PRN (14:47)
[2023-08-05] MEDS ORDERED: Diltiazem IR 60 MG Tab PO ONE (14:50)
== END 2023-08-05 15:00 | disposition left against medical advice (07) ==
LOC: LL.ED 11:40
DX: I95.9 Hypotension, unspecified (principal); R00.0 Tachycardia, unspecified; Z71.89 Other specified counseling; I12.9 Hypertensive chronic kidney disease with stage 1 through stage 4 chronic kidney disease, or unspecified chronic kidney disease; N18.9 Chronic kidney disease, unspecified; E11.22 Type 2 diabetes mellitus with diabetic chronic kidney disease; E78.00 Pure hypercholesterolemia, unspecified; I25.10 Atherosclerotic heart disease of native coronary artery without angina pectoris; I48.91 Unspecified atrial fibrillation; E11.40 Type 2 diabetes mellitus with diabetic neuropathy, unspecified; E03.9 Hypothyroidism, unspecified; E66.9 Obesity, unspecified; Z95.5 Presence of coronary angioplasty implant and graft; Z90.49 Acquired absence of other specified parts of digestive tract; Z79.84 Long term (current) use of oral hypoglycemic drugs; Z79.899 Other long term (current) drug therapy; Z88.6 Allergy status to analgesic agent; Z68.35 Body mass index [BMI] 35.0-35.9, adult
CPT/HCPCS: 99284

== ENCOUNTER 2023-08-08 01:22 | Observation (INO) | payer OTHER, MEDICARE ==
[2023-08-08] MEDS ORDERED: Sodium Chloride 0.9% 10 ML Syringe FLUSH PRN (01:25)
[2023-08-08 01:38] LABS: BASOPHILS ABSOLUTE AUTO 0.03 K/uL (0.00-0.20); BASOPHILS PERCENT AUTO 0.4 % (0.0-2.0); EOSINOPHILS ABSOLUTE AUTO 0.28 K/uL (0.00-0.50); EOSINOPHILS PERCENT AUTO 3.5 % (0.0-5.0); HEMATOCRIT 40.9 % (39.0-49.0); HEMOGLOBIN 13.4 g/dL (13.1-16.8); LYMPHOCYTES ABSOLUTE AUTO 2.37 K/uL (0.50-3.50); LYMPHOCYTES PERCENT AUTO 29.6 % (10.0-50.0); MEAN CORPUSCULAR HEMOGLOBIN 32.3 pg (28.2-33.3); MEAN CORPUSCULAR HGB CONC 32.8 g/dL (31.7-36.0); MEAN CORPUSCULAR VOLUME 98.6 fL (84.0-98.0); MONOCYTES ABSOLUTE AUTO 1.03 K/uL (0.00-1.00); MONOCYTES PERCENT AUTO 12.8 % (2.0-14.0); NEUTROPHILS ABSOLUTE AUTO 4.31 K/uL (1.40-7.00); NEUTROPHILS PERCENT AUTO 53.7 % (45.0-80.0); PLATELET COUNT,PLT 258 K/uL (150-350); RED BLOOD CELL COUNT 4.15 M/uL (4.33-5.41); RED CELL DISTRIBUTION WIDTH 13.6 % (11.2-14.1)
[2023-08-08] MEDS ORDERED: Diltiazem 25 MG/5 ML SDV IVPUSH ONE (02:03)
[2023-08-08 02:17] LABS: ALANINE AMINOTRANSFERASE,ALT 22 U/L (12-78); ALBUMIN 3.2 g/dL (3.4-5.0); ALKALINE PHOSPHATASE 81 IU/L (46-116); ANION GAP 11.2 meq/L (7-15); ASPARTATE AMNIOTRANSFERASE,AST 17 U/L (15-37); BILIRUBIN TOTAL 0.3 mg/dL (0.2-1.0); BLOOD UREA NITROGEN,BUN 29 mg/dL (7-18); CALCIUM 8.7 mg/dL (8.5-10.1); CARBON DIOXIDE,CO2 23.8 mmol/L (21.0-32.0); CHLORIDE,CL 103 mmol/L (98-107); CREATININE 2.24 mg/dL (0.51-1.17); ESTIMATED GFR 29 mL/min (>=60); GLUCOSE RANDOM 176 mg/dL (70-99); POTASSIUM,K 4.9 mmol/L (3.5-5.1); PRO B-TYPE NATRIUR PEPT,BNPPRO 646 pg/mL (0-125); PROTEIN TOTAL,TP 7.1 g/dL (6.4-8.2); SODIUM,NA 138 mmol/L (136-145)
[2023-08-08] MEDS ORDERED: Diltiazem IR 60 MG Tab PO ONE ×3 (03:35→20:00)
[2023-08-08] MEDS ORDERED: traMADol 50 MG Tab PO PRN (03:36)
[2023-08-08] MEDS ORDERED: Nitroglycerin 0.4 MG Tab.SL SL PRN (03:36)
[2023-08-08 04:24] LABS: MAGNESIUM 2.5 mg/dL (1.8-2.4); TSH ULTRASENSITIVE 10.335 mIU/mL (0.358-3.740)
[2023-08-08] MEDS: Acetaminophen 650 MG Tab.ER PO SCH ×2 (07:53→18:01)
[2023-08-08] MEDS: Omeprazole 20 MG Cap.CR PO SCH (07:54)
[2023-08-08] MEDS: DULoxetine 30 MG Cap PO SCH (07:54)
[2023-08-08] MEDS: Loratadine 10 MG Tab PO SCH (07:54)
[2023-08-08] MEDS: Allopurinol 100 MG Tab PO SCH (07:54)
[2023-08-08] MEDS: Docusate Sodium 100 MG Cap PO SCH ×2 (07:54→18:01)
[2023-08-08] MEDS: Apixaban 5 MG Tab PO SCH ×2 (07:55→18:01)
[2023-08-08] MEDS: Ferrous Sulfate 325 MG Tab PO SCH (07:55)
[2023-08-08] MEDS: Levothyroxine 150 MCG Tab PO SCH (07:55)
[2023-08-08] MEDS: Sotalol 80 MG Tab PO SCH (07:59)
[2023-08-08] MEDS: levETIRAcetam 250 MG Tab PO SCH ×2 (07:59→18:01)
[2023-08-08] MEDS: Isosorbide Mononitrate 30 MG Tab.ER PO SCH (07:59)
[2023-08-08] MEDS ORDERED: Diltiazem 120 MG Cap.CD PO SCH (08:00)
[2023-08-08] MEDS: busPIRone 15 MG Tab PO SCH ×2 (11:18→18:01)
[2023-08-08] MEDS ORDERED: Sodium Chloride 0.9% 1,000 ML IV ONE (13:56)
[2023-08-08] MEDS ORDERED: Levothyroxine 75 MCG Tab PO ONE (13:58)
[2023-08-08] MEDS ORDERED: Insulin Glarg,Human.Rec.Analog 100 Unit/ML 10 ML Vial SUBCUT SCH (20:00)
[2023-08-08] MEDS ORDERED: atorvaSTATin 20 MG Tab PO SCH (20:00)
[2023-08-08] MEDS ORDERED: Clopidogrel 75 MG Tab PO SCH (20:00)
[2023-08-09 06:11] LABS: ANION GAP 10.7 meq/L (7-15); BLOOD UREA NITROGEN,BUN 27 mg/dL (7-18); CALCIUM 8.5 mg/dL (8.5-10.1); CARBON DIOXIDE,CO2 24.3 mmol/L (21.0-32.0); CHLORIDE,CL 103 mmol/L (98-107); CREATININE 2.08 mg/dL (0.51-1.17); GLUCOSE RANDOM 159 mg/dL (70-99); POTASSIUM,K 4.5 mmol/L (3.5-5.1); SODIUM,NA 138 mmol/L (136-145)
[2023-08-09 06:13] LABS: ESTIMATED GFR 31 mL/min (>=60)
[2023-08-09 07:01] LABS: BASOPHILS ABSOLUTE AUTO 0.04 K/uL (0.00-0.20); BASOPHILS PERCENT AUTO 0.5 % (0.0-2.0); EOSINOPHILS ABSOLUTE AUTO 0.36 K/uL (0.00-0.50); EOSINOPHILS PERCENT AUTO 4.7 % (0.0-5.0); HEMATOCRIT 37.3 % (39.0-49.0); HEMOGLOBIN 12.3 g/dL (13.1-16.8); LYMPHOCYTES ABSOLUTE AUTO 2.35 K/uL (0.50-3.50); LYMPHOCYTES PERCENT AUTO 30.6 % (10.0-50.0); MEAN CORPUSCULAR HEMOGLOBIN 32.6 pg (28.2-33.3); MEAN CORPUSCULAR VOLUME 98.9 fL (84.0-98.0); MONOCYTES ABSOLUTE AUTO 0.93 K/uL (0.00-1.00); MONOCYTES PERCENT AUTO 12.1 % (2.0-14.0); NEUTROPHILS ABSOLUTE AUTO 4.01 K/uL (1.40-7.00); NEUTROPHILS PERCENT AUTO 52.1 % (45.0-80.0); PLATELET COUNT,PLT 244 K/uL (150-350); RED BLOOD CELL COUNT 3.77 M/uL (4.33-5.41); RED CELL DISTRIBUTION WIDTH 13.2 % (11.2-14.1); WHITE BLOOD CELL COUNT,WBC 7.7 K/uL (4.0-10.2)
[2023-08-09] MEDS: Isosorbide Mononitrate 30 MG Tab.ER PO SCH (07:22)
[2023-08-09] MEDS: Loratadine 10 MG Tab PO SCH (07:22)
[2023-08-09] MEDS: Docusate Sodium 100 MG Cap PO SCH (07:22)
[2023-08-09] MEDS: Ferrous Sulfate 325 MG Tab PO SCH (07:22)
[2023-08-09] MEDS: Allopurinol 100 MG Tab PO SCH (07:22)
[2023-08-09] MEDS: Sotalol 80 MG Tab PO SCH (07:23)
[2023-08-09] MEDS: Acetaminophen 650 MG Tab.ER PO SCH (07:24)
[2023-08-09] MEDS: Levothyroxine 150 MCG Tab PO SCH (07:24)
[2023-08-09] MEDS: busPIRone 15 MG Tab PO SCH (07:24)
[2023-08-09] MEDS: DULoxetine 30 MG Cap PO SCH (07:24)
[2023-08-09] MEDS: Omeprazole 20 MG Cap.CR PO SCH (07:25)
[2023-08-09] MEDS: Apixaban 5 MG Tab PO SCH (07:25)
[2023-08-09] MEDS: levETIRAcetam 250 MG Tab PO SCH (07:32)
[2023-08-09] MEDS ORDERED: Diltiazem 180 MG Cap.CD PO SCH (08:00)
== END 2023-08-09 09:51 | disposition home or self-care (01) ==
LOC: LL.ED 01:22 → LL.MS 02:50
PROVIDERS: ADMIT Emergency Medicine; ATTEND Emergency Medicine
DX: R07.89 Other chest pain (principal); I48.91 Unspecified atrial fibrillation; E03.9 Hypothyroidism, unspecified; E11.22 Type 2 diabetes mellitus with diabetic chronic kidney disease; I12.9 Hypertensive chronic kidney disease with stage 1 through stage 4 chronic kidney disease, or unspecified chronic kidney disease; N18.9 Chronic kidney disease, unspecified; E78.00 Pure hypercholesterolemia, unspecified; G47.30 Sleep apnea, unspecified; E11.21 Type 2 diabetes mellitus with diabetic nephropathy; F32.A Depression, unspecified; F41.9 Anxiety disorder, unspecified; E66.9 Obesity, unspecified; Z79.01 Long term (current) use of anticoagulants; Z68.30 Body mass index [BMI] 30.0-30.9, adult; Z79.899 Other long term (current) drug therapy; Z79.4 Long term (current) use of insulin; Z79.890 Hormone replacement therapy; Z88.8 Allergy status to other drugs, medicaments and biological substances
CPT/HCPCS: 36415; 71045; 80048; 80053; 82947; 83605; 83735; 83880; 84443; 84484; 85025; 85379; 93005; 96361; 96374; 99285; A9270; G0378; J1815; J3490; J7030; 93010

== ENCOUNTER 2023-11-20 13:58 | Emergency (ER) | payer MEDICARE, OTHER ==
[2023-11-20 14:09] LABS: BASOPHILS ABSOLUTE AUTO 0.04 K/uL (0.00-0.20); BASOPHILS PERCENT AUTO 0.5 % (0.0-2.0); EOSINOPHILS ABSOLUTE AUTO 0.24 K/uL (0.00-0.50); EOSINOPHILS PERCENT AUTO 3.1 % (0.0-5.0); HEMATOCRIT 42.9 % (39.0-49.0); HEMOGLOBIN 14.6 g/dL (13.1-16.8); LYMPHOCYTES ABSOLUTE AUTO 2.31 K/uL (0.50-3.50); LYMPHOCYTES PERCENT AUTO 29.9 % (10.0-50.0); MEAN CORPUSCULAR HEMOGLOBIN 32.7 pg (28.2-33.3); MONOCYTES ABSOLUTE AUTO 0.81 K/uL (0.00-1.00); MONOCYTES PERCENT AUTO 10.5 % (2.0-14.0); NEUTROPHILS ABSOLUTE AUTO 4.33 K/uL (1.40-7.00); PLATELET COUNT,PLT 246 K/uL (150-350); RED BLOOD CELL COUNT 4.47 M/uL (4.33-5.41); WHITE BLOOD CELL COUNT,WBC 7.7 K/uL (4.0-10.2)
[2023-11-20 14:31] LABS: ALANINE AMINOTRANSFERASE,ALT 20 U/L (12-78); ALBUMIN 3.1 g/dL (3.4-5.0); ALKALINE PHOSPHATASE 110 IU/L (46-116); ANION GAP 9.8 meq/L (7-15); ASPARTATE AMNIOTRANSFERASE,AST 13 U/L (15-37); BILIRUBIN TOTAL 0.6 mg/dL (0.2-1.0); BLOOD UREA NITROGEN,BUN 28 mg/dL (7-18); CALCIUM 9.2 mg/dL (8.5-10.1); CARBON DIOXIDE,CO2 25.2 mmol/L (21.0-32.0); CHLORIDE,CL 101 mmol/L (98-107); GLUCOSE RANDOM 162 mg/dL (70-99); POTASSIUM,K 4.4 mmol/L (3.5-5.1); PROTEIN TOTAL,TP 7.3 g/dL (6.4-8.2); SODIUM,NA 136 mmol/L (136-145)
[2023-11-20 14:34] LABS: ESTIMATED GFR 31 mL/min (>=60)
[2023-11-20 14:52] LABS: PROTHROMBIN TIME 10.4 SEC (9.0-11.1)
[2023-11-20] MEDS: Acetaminophen 500 MG Tab PO ONE (15:04)
[2023-11-20 16:17] LABS: BILIRUBIN,URINE SMALL (NEGATIVE); COLOR,URINE YELLOW; GLUCOSE,URINE 500 mg/dL (NEGATIVE); KETONES,URINE 15 mg/dL (NEGATIVE); LEUKOCYTE ESTERASE,URINE NEGATIVE (NEGATIVE); NITRITE,URINE NEGATIVE (NEGATIVE); OCCULT BLOOD,URINE NEGATIVE (NEGATIVE); PH,URINE 5.5 (5.0-9.0); PROTEIN,URINE 30 mg/dL (NEGATIVE); UROBILINOGEN,URINE 0.2 E.U./dL (0.2-1.0)
[2023-11-20 16:40] LABS: APPEARANCE,URINE SLIGHTLY CLOUDY; BACTERIA,URINE RARE /HPF (NONE TO FEW); HYALINE CASTS,URINE FEW; RBC,URINE 0-5 /HPF; WBC,URINE 0-5 /HPF
[2023-11-20] MEDS: traMADol 50 MG Tab PO ONE (16:42)
== END 2023-11-20 17:54 ==
LOC: LL.ED 13:58
DX: S16.1XXA Strain of muscle, fascia and tendon at neck level, initial encounter (principal); I25.10 Atherosclerotic heart disease of native coronary artery without angina pectoris; E78.00 Pure hypercholesterolemia, unspecified; I12.9 Hypertensive chronic kidney disease with stage 1 through stage 4 chronic kidney disease, or unspecified chronic kidney disease; N18.9 Chronic kidney disease, unspecified; E11.21 Type 2 diabetes mellitus with diabetic nephropathy; E11.22 Type 2 diabetes mellitus with diabetic chronic kidney disease; E03.9 Hypothyroidism, unspecified; Z88.6 Allergy status to analgesic agent; Z95.5 Presence of coronary angioplasty implant and graft; Z79.899 Other long term (current) drug therapy; Z79.4 Long term (current) use of insulin; W18.30XA Fall on same level, unspecified, initial encounter
CPT/HCPCS: 36415; 70450; 72125; 80053; 81001; 84484; 85025; 85610; 93005; 99284; 99285; A9270-GY

== ENCOUNTER 2025-02-02 12:38 | Emergency (ER) | payer MEDICARE, OTHER ==
[2025-02-02 13:15] LABS: BASOPHILS ABSOLUTE AUTO 0.03 K/uL (0.00-0.20); BASOPHILS PERCENT AUTO 0.3 % (0.0-2.0); EOSINOPHILS ABSOLUTE AUTO 0.33 K/uL (0.00-0.50); EOSINOPHILS PERCENT AUTO 3.8 % (0.0-5.0); IMMATURE GRAN ABSOLUTE AUTO 0.06 10^3/uL (0.00-0.04); IMMATURE GRAN PERCENT AUTO 0.7 % (0.0-0.4); LYMPHOCYTES ABSOLUTE AUTO 1.96 K/uL (0.50-3.50); LYMPHOCYTES PERCENT AUTO 22.5 % (10.0-50.0); MONOCYTES ABSOLUTE AUTO 0.89 K/uL (0.00-1.00); MONOCYTES PERCENT AUTO 10.2 % (2.0-14.0); NEUTROPHILS ABSOLUTE AUTO 5.43 K/uL (1.40-7.00); NEUTROPHILS PERCENT AUTO 62.5 % (45.0-80.0); PLATELET COUNT,PLT 202 K/uL (150-350); RED BLOOD CELL COUNT 4.00 M/uL (4.33-5.41); RED CELL DISTRIBUTION WIDTH 13.5 % (11.2-14.1); WHITE BLOOD CELL COUNT,WBC 8.7 K/uL (4.0-10.2)
[2025-02-02 13:38] LABS: INR 1.1 (0.9-1.1)
[2025-02-02 13:48] LABS: ALANINE AMINOTRANSFERASE,ALT 23 U/L (12-78); ASPARTATE AMNIOTRANSFERASE,AST 16 U/L (15-37); BILIRUBIN TOTAL 0.3 mg/dL (0.2-1.0); BLOOD UREA NITROGEN,BUN 33 mg/dL (7-18); CARBON DIOXIDE,CO2 23.2 mmol/L (21.0-32.0); CHLORIDE,CL 104 mmol/L (98-107); CREATININE 1.99 mg/dL (0.51-1.17); GLUCOSE RANDOM 187 mg/dL (70-99); POTASSIUM,K 4.2 mmol/L (3.5-5.1); PRO B-TYPE NATRIUR PEPT,BNPPRO 185 pg/mL (0-125); PROTEIN TOTAL,TP 7.2 g/dL (6.4-8.2); SODIUM,NA 138 mmol/L (136-145)
[2025-02-02 13:50] LABS: ESTIMATED GFR 33 mL/min (>=60)
[2025-02-02] MEDS ORDERED: Naloxone 0.4 MG/ML SDV IVPUSH PRN (13:56)
[2025-02-02] MEDS: Sodium Chloride 0.9% 10 ML Syringe FLUSH PRN (14:04)
[2025-02-02] MEDS: fentaNYL 50 MCG/ML SDV IVPUSH ONE (14:05)
== END 2025-02-02 14:36 | disposition home or self-care (01) ==
LOC: LL.ED 12:38
DX: S09.90XA Unspecified injury of head, initial encounter (principal); I48.91 Unspecified atrial fibrillation; I25.10 Atherosclerotic heart disease of native coronary artery without angina pectoris; I12.9 Hypertensive chronic kidney disease with stage 1 through stage 4 chronic kidney disease, or unspecified chronic kidney disease; N18.9 Chronic kidney disease, unspecified; E11.21 Type 2 diabetes mellitus with diabetic nephropathy; E11.22 Type 2 diabetes mellitus with diabetic chronic kidney disease; M19.90 Unspecified osteoarthritis, unspecified site; E78.00 Pure hypercholesterolemia, unspecified; Z90.49 Acquired absence of other specified parts of digestive tract; Z95.5 Presence of coronary angioplasty implant and graft; Z88.6 Allergy status to analgesic agent; Z79.4 Long term (current) use of insulin; Z79.84 Long term (current) use of oral hypoglycemic drugs; Z79.01 Long term (current) use of anticoagulants; Z79.890 Hormone replacement therapy; Z79.899 Other long term (current) drug therapy; W01.198A Fall on same level from slipping, tripping and stumbling with subsequent striking against other object, initial encounter
CPT/HCPCS: 36415; 70450; 71250; 72125; 80053; 83735; 83880; 84484; 85025; 85610; 93005; 93010; 96374; 99284; J3010

== ENCOUNTER 2025-04-09 19:57 | Emergency (ER) | payer OTHER ==
[2025-04-09] MEDS ORDERED: Sodium Chloride 0.9% 10 ML Syringe FLUSH PRN (20:02)
[2025-04-09] MEDS: Ondansetron 4 MG/2 ML SDV IVPUSH ONE (20:15)
[2025-04-09 20:16] LABS: BASOPHILS ABSOLUTE AUTO 0.05 K/uL (0.00-0.20); BASOPHILS PERCENT AUTO 0.6 % (0.0-2.0); EOSINOPHILS ABSOLUTE AUTO 0.38 K/uL (0.00-0.50); EOSINOPHILS PERCENT AUTO 4.7 % (0.0-5.0); IMMATURE GRAN ABSOLUTE AUTO 0.03 10^3/uL (0.00-0.04); IMMATURE GRAN PERCENT AUTO 0.4 % (0.0-0.4); LYMPHOCYTES ABSOLUTE AUTO 2.45 K/uL (0.50-3.50); LYMPHOCYTES PERCENT AUTO 30.3 % (10.0-50.0); MONOCYTES ABSOLUTE AUTO 0.86 K/uL (0.00-1.00); MONOCYTES PERCENT AUTO 10.6 % (2.0-14.0); NEUTROPHILS ABSOLUTE AUTO 4.31 K/uL (1.40-7.00); NEUTROPHILS PERCENT AUTO 53.4 % (45.0-80.0); PLATELET COUNT,PLT 224 K/uL (150-350); RED BLOOD CELL COUNT 3.90 M/uL (4.33-5.41); RED CELL DISTRIBUTION WIDTH 13.9 % (11.2-14.1); WHITE BLOOD CELL COUNT,WBC 8.1 K/uL (4.0-10.2)
[2025-04-09] MEDS ORDERED: Naloxone 0.4 MG/ML SDV IVPUSH PRN (20:26)
[2025-04-09 20:36] LABS: ALANINE AMINOTRANSFERASE,ALT 16 U/L (12-78); ASPARTATE AMNIOTRANSFERASE,AST 15 U/L (15-37); BILIRUBIN TOTAL 0.2 mg/dL (0.2-1.0); BLOOD UREA NITROGEN,BUN 20 mg/dL (7-18); CARBON DIOXIDE,CO2 23.8 mmol/L (21.0-32.0); CHLORIDE,CL 106 mmol/L (98-107); CREATININE 2.03 mg/dL (0.51-1.17); GLUCOSE RANDOM 179 mg/dL (70-99); POTASSIUM,K 4.7 mmol/L (3.5-5.1); PROTEIN TOTAL,TP 7.0 g/dL (6.4-8.2); SODIUM,NA 141 mmol/L (136-145)
[2025-04-09 20:37] LABS: ESTIMATED GFR 32 mL/min (>=60)
[2025-04-09 20:40] LABS: INR 1.0 (0.9-1.1); PTT,PARTIAL THROMBOPLSTIN TIME 22.8 SEC (23.8-34.4)
[2025-04-09] MEDS ORDERED: Iopamidol 755 Mg/ML 100 ML Bottle IVPUSH ONE (20:53)
[2025-04-09] MEDS: [UNRECOGNIZED DRUG - OTHER] IVPUSH ONE (21:23)
[2025-04-09] MEDS: FACTOR IX COMPLEX HUMAN 500 UNIT IVPUSH ONE (21:23)
[2025-04-09] MEDS: Factor IX Complex Human 500 UNIT ONE (21:23)
[2025-04-09] MEDS: HUM PROTHROMBIN CPLX 2000 UNIT IVPUSH ONE (21:23)
[2025-04-09] MEDS: [UNRECOGNIZED DRUG - OTHER] ONE ×2 (21:26→21:31)
[2025-04-09] MEDS: HUM PROTHROMBIN CPLX 1000 UNIT ONE ×2 (21:26→21:31)
== END 2025-04-09 21:38 ==
LOC: LL.ED 19:57
DX: S06.6XAA Traumatic subarachnoid hemorrhage with loss of consciousness status unknown, initial encounter (principal); I12.9 Hypertensive chronic kidney disease with stage 1 through stage 4 chronic kidney disease, or unspecified chronic kidney disease; I25.10 Atherosclerotic heart disease of native coronary artery without angina pectoris; I48.91 Unspecified atrial fibrillation; E11.9 Type 2 diabetes mellitus without complications; E03.9 Hypothyroidism, unspecified; E66.9 Obesity, unspecified; E78.00 Pure hypercholesterolemia, unspecified; M19.90 Unspecified osteoarthritis, unspecified site; N18.9 Chronic kidney disease, unspecified; Z79.899 Other long term (current) drug therapy; Z79.4 Long term (current) use of insulin; Z79.01 Long term (current) use of anticoagulants; Z88.6 Allergy status to analgesic agent; Z90.49 Acquired absence of other specified parts of digestive tract; W19.XXXA Unspecified fall, initial encounter
CPT/HCPCS: 36415; 70450; 71045; 72125; 72170; 80053; 85025; 85610; 85730; 86850; 86900; 86901; 93005; 93010; 94761; 96374; 96375; 99284; 99285; J2405; J7168; J1171